=== PATIENT | female | born 1930 | race Caucasian/White ===

== ENCOUNTER 2017-08-23 06:58 | Day surgery (SDC) | payer MEDICARE, BC ==
[2017-08-22 16:14] LABS: BASOPHILS % (AUTO) 0.8 % (0-1); EOSINOPHILS # (AUTO) 0.1 X10'3 (0-0.9); EOSINOPHILS % (AUTO) 1.3 % (0-6); HEMOGLOBIN 13.1 g/dl (12.0-16.0); LYMPHOCYTES # (AUTO) 1.1 X10'3 (1.1-4.8); LYMPHOCYTES % (AUTO) 17.9 % (21-51); MEAN CORPUSCULAR HEMOGLOBIN 32.2 PG (27.0-31.0); MEAN CORPUSCULAR HGB CONC 34.5 % (33.0-36.5); MEAN CORPUSCULAR VOLUME 93.4 FL (78-98); MONOCYTES # (AUTO) 0.6 X10'3 (0-0.9); MONOCYTES % (AUTO) 9.4 % (2-12); NEUTROPHILS # (AUTO) 4.3 X10'3 (1.8-7.7); NEUTROPHILS % (AUTO) 70.6 % (42-75); PLATELET COUNT 282 X10'3 (140-440); RED BLOOD COUNT 4.07 X10'6 (4.20-5.60); RED CELL DISTRIBUTION WIDTH 14.8 % (11.5-14.5); WHITE BLOOD COUNT 6.1 X10'3 (4.5-11.0)
[2017-08-22 16:31] LABS: ALBUMIN 3.5 G/DL (3.4-5.0); ANION GAP 6 (8-16); BLOOD UREA NITROGEN 19 MG/DL (7-18); BUN/CREATININE RATIO 25.3 (6.6-38.0); CALCIUM 9.3 MG/DL (8.5-10.1); CHLORIDE 105 MMOL/L (99-107); CREATININE 0.75 MG/DL (0.40-0.90); GLUCOSE 113 MG/DL (70-104); POTASSIUM 3.9 MMOL/L (3.5-5.1); SODIUM 143 MMOL/L (135-145); TOTAL CARBON DIOXIDE 32.1 MMOL/L (24-32); eGFR 73 ML/MIN
[2017-08-22 16:34] LABS: PARTIAL THROMBOPLASTIN TIME 27 SECONDS (22-32); PROTHROMBIN TIME 10.7 SECONDS (9.0-12.0)
[2017-08-23] VITALS (11 sets, daily range): BP systolic 129–156; BP diastolic 63–92
[~2017-08-23] VITALS: Ht 157.5 cm; Wt 67.4 kg
[~2017-08-23 06:58] MED LIST: APIX2.5T PO; APIX5TAB3 PO; ASPI-611 PO; ATOR10TA87 PO; CALC600T12 PO; CELE-193 PO; CLOP75TA35 PO; DRON400T6 PO; FISH12002 PO; FURO-150 PO; MULT-1074 PO; NIFE30TA27 PO; POTA10TA19 PO; SYN0.1T PO
[2017-08-23] MEDS ORDERED: LIDOcaine 1% (10mg/ml) 2ml vial ONE (07:15)
[2017-08-23] MEDS ORDERED: diphenhydrAMINE 25mg capsule PO PRN (07:25)
[2017-08-23] MEDS ORDERED: normal saline 1000ml 1,000 ML IV SCH (07:25)
[2017-08-23] MEDS ORDERED: LORazepam 0.5 MG tablet PO PRN (07:25)
[2017-08-23] MEDS ORDERED: GABA100C PO (08:19)
[2017-08-23] MEDS ORDERED: iohexol 350 MG/ML 50ML vial IV ONE (09:14)
[2017-08-23] MEDS ORDERED: heparin 1,000unit/ml 10ml vial 10 ML ONE (09:14)
[2017-08-23] MEDS ORDERED: iohexol 350MG/ML 100ml bottle IV ONE ×2 (09:14→10:13)
[2017-08-23] MEDS ORDERED: nitroGLYCERIN-Tridil 50MG/D5W 250 ML IV ONE (09:14)
[2017-08-23] MEDS ORDERED: LIDOcaine 1%/PF (10mg/ml) 5ml vial ONE (09:15)
[2017-08-23] MEDS ORDERED: midazolam 2 mg/2 ml injection ONE (10:05)
[2017-08-23] MEDS ORDERED: fentaNYL/PF 50MCG/1 ML 2ML syringe ONE (10:06)
[2017-08-23] MEDS ORDERED: adenosine 90 MG/30ml kit =/or below 120kg Cath Lab IV ONE (10:13)
== END 2017-08-23 16:00 | disposition home or self-care (01) ==
LOC: SSTAY O 06:58
PROVIDERS: ATTEND Internal Medicine Cardiovascular Disease
DX: I25.118 Atherosclerotic heart disease of native coronary artery with other forms of angina pectoris (principal); I11.0 Hypertensive heart disease with heart failure; I50.9 Heart failure, unspecified; E78.5 Hyperlipidemia, unspecified; I34.0 Nonrheumatic mitral (valve) insufficiency; I48.0 Paroxysmal atrial fibrillation; I44.4 Left anterior fascicular block; K21.9 Gastro-esophageal reflux disease without esophagitis; M19.90 Unspecified osteoarthritis, unspecified site; M81.0 Age-related osteoporosis without current pathological fracture; E03.9 Hypothyroidism, unspecified; Z72.89 Other problems related to lifestyle; Z79.82 Long term (current) use of aspirin; Z95.5 Presence of coronary angioplasty implant and graft; Z98.890 Other specified postprocedural states; Z85.828 Personal history of other malignant neoplasm of skin; Z87.891 Personal history of nicotine dependence; Z79.899 Other long term (current) drug therapy
CPT/HCPCS: 36415; 80048; 85025; 85610; 85730; 93005; 93458; 93571; 93572; 99152; 99153; A6257; C1760; C1769; J0153; J1644; J2001; J2250; J3010; J3490; J7030; Q0163; Q9967; A4620